=== PATIENT | female | born 1995 | race Caucasian/White ===

== ENCOUNTER 2023-07-07 05:34 | Emergency (ER) | payer SELFPAY ==
[2023-07-07 05:37] VITALS: BP 108/76; PULSE 100; RESP 20; TEMP 36.7; O2SAT 96
--- NOTE | 2023-07-07 05:48 | PC.NURSE ---
Pt presents to ER for a laceration to the medial aspect of her right calf Pt states she was climbing back into bed and knocked something off of her night stand that broke and the glass cut her leg Pt states she does not know when her last Tetanus shot was Bleeding controlled at this time
--- NOTE | 2023-07-07 05:51 | XR_ITS ---
The [address] [address] Patient Name: DEACON GUERRA MRN: [id number] date: 1995 Sex: F Assigned Patient Location: ER Current Patient Location: Accession/Order Number: [id number] Exam Date: 07/07/2023 06:15 Report Date: 07/07/2023 08:00 At the request of: SRUTHI BRAN Procedure: XR tibia fibula RT 2V PROCEDURE: XR tibia fibula RT 2V COMPARISON: None. HISTORY: foreign body FINDINGS: BONES:No fracture, acute abnormality, or significant arthropathy. SOFT TISSUES:Negative. No visible soft tissue swelling. EFFUSION:None visible. OTHER: Findings were discussed with the emergency room at 7:22 AM XR/XR tibia fibula RT 2V IMPRESSION: No radiopaque foreign body Electronically authenticated by: AMANUEL CARDENAS Date: 07/07/2023 08:00
[2023-07-07] MEDS: IBUPROFEN 600 MG TABLET PO (06:23)
--- NOTE | 2023-07-07 06:23 | ED.GENADUL1 ---
HPI - General Adult General Chief complaint: Wound/Laceration Stated complaint: CUT RIGHT LEG Time Seen by Provider: 07/07/23 05:48 Source: patient Mode of arrival: Wheelchair Limitations: no limitations History of Present Illness HPI narrative: Is coming to the ER after she sustained a wound to her right leg after broken candle stock fell on her right leg while it was in the table there was no other injuries and the patient does not remember the last time she had a tetanus booster Related Data Home Medications Medication Instructions Recorded Confirmed fluoxetine 20 mg capsule mg 07/07/23 Allergies Allergy/AdvReac Type Severity Reaction Status Date / Time No Known Drug Allergies Allergy Verified 07/07/23 05:40 Review of Systems ROS Status of ROS 10 or more systems reviewed and unremarkable except as noted in history and below [facility] Social History Smoking status: Never smoker Exam Narrative Exam Narrative: Nurses notes and vital signs reviewed and patient is not hypoxic. General: Well-appearing and in no apparent distress. Skin: Warm, dry, no pallor noted. No rash. Head: Normocephalic, atraumatic. Neck: Supple, non-tender. Eye: Pupils are equal, round and EOMI. No scleral icterus. Ears, Nose, Mouth, and Throat: TM are clear, no nasal mucosal hypertrophy. Oral mucosa is moist, no posterior oropharynx erythema, uvula is mid-line Cardiovascular: Regular Rate and Rhythm without murmur, gallop or rub. Respiratory: No accessory muscle use or respiratory distress. Lungs are clear to auscultation, no wheezing, rales or rhonchi Chest Wall: no tenderness Back: No midline thoracic or lumbar vertebral tenderness. No CVA tenderness Musculoskeletal: normal ROM, no calf or popliteal tenderness, at the right lower third of the tibia the patient only had 2.5 cm linear laceration going through the skin with no exposure of the underlying structures no foreign body seen GI: Abdomen is soft, non-distended. Normal bowel sounds. No masses appreciated. No tenderness to palpation. No rebound, guarding, or rigidity noted. Neurological: A&O x4. No cranial nerve dysfunction observed. No truncal ataxia. Moves all extremities. Sensation intact. Psychiatric: Cooperative and interactive. Normal mood and affect. Constitutional Vital Signs, click to edit/add: Last Vital Signs Temp 98.0 F 07/07/23 05:37 Pulse 100 H 07/07/23 05:37 Resp 20 07/07/23 05:37 BP 108/76 07/07/23 05:37 Pulse Ox 96 07/07/23 05:37 Course Vital Signs Vital signs: Vital Signs Temperature 98.0 F 07/07/23 05:37 Pulse Rate 100 H 07/07/23 05:37 Respiratory Rate 20 07/07/23 05:37 Blood Pressure 108/76 07/07/23 05:37 Pulse Oximetry 96 07/07/23 05:37 Temperature 98.0 F 07/07/23 05:37 Pulse Rate 100 H 07/07/23 05:37 Respiratory Rate 20 07/07/23 05:37 Blood Pressure 108/76 07/07/23 05:37 Pulse Oximetry 96 07/07/23 05:37 Medical Decision Making MDM Narrative Medical decision making narrative: After cleaning the wound the patient had LET applied ,2-3 cc of 1 % lidocaine after which the patient had 4 stitches and interrupted 4-0 nylon The patient instructed about wound care and dressing was applied X-ray of the right tibia and fibula shows no foreign body in the prelim reading The patient is to follow up with primary care physician in next 2-3 days or to return to the emergency department should any of the signs or symptoms worsen or new symptoms develop. The patient agrees with the following Diagnosis and Treatment plan and the patient will be discharged home. Discharge Plan Discharge Chief Complaint: Wound/Laceration Clinical Impression: Laceration Patient Disposition: Home, Self-Care Time of Disposition Decision: 06:46 Condition: Good Prescriptions / Home Meds: No Action fluoxetine 20 mg capsule Stand Alone Forms: Portal Instructions Referrals: Michael Tubbs MD [Primary Care Provider] - 1 week
[2023-07-07] MEDS: ADACEL DIPH,PERTUSS(ACELL),TET VAC/PF 0.5 ML ADULT SYRINGE IM (06:24)
[2023-07-07] MEDS: LIDOCAINE HCL 1% 100 MG/10 ML MDV INJ (06:25)
[2023-07-07 07:12] VITALS: BP 118/72; PULSE 86; RESP 18; O2SAT 98
== END 2023-07-07 07:50 | disposition home or self-care (01) ==
PROVIDERS: Emergency Provider Emergency Medicine; PCP Family Medicine
DX: S81.811A Laceration without foreign body, right lower leg, initial encounter (principal); Z23 Encounter for immunization; W20.8XXA Other cause of strike by thrown, projected or falling object, initial encounter
CPT/HCPCS: 12001; 73590; 90471; 90715; 99283

== ENCOUNTER 2024-06-18 17:57 | Emergency (ER) | payer SELFPAY ==
[2024-06-18 18:08] VITALS: BP 107/63; PULSE 79; TEMP 36.6; O2SAT 98; BMI 21.3
--- OUTSIDE RECORDS SUMMARY | 2024-06-18 18:09 | XMS_ITS | CCD ---
Author Organization [facility] In[facility] ion Partnership [employer] [facility] Care Team Providers Care Blood Bank Coordinator Name Role Phone DR ARMAND TUBBS Primary Care Unavailable DR PATRIC HUTCHINSON Admitting Unavailable JASPER, DR SPIVEY Attending Unavailable JASPER, DR SPIVEY Consulting Unavailable Problems Problem Classification Problem Date Documented Da te Episodic/Chronic E Codes: Natural/environment (1 source) Other and unspecified overexertion or strenuous movements or postures, initial encounter; Translations: [OTH AND UNS OVREXRT/STRN MVMT/POS INT] Onset: 04-14-2022 Episodic E Codes: Unspecified (1 source) Activity, dancing; Translations: [ACTIVITY DANCING] Onset: 04-14-2022 Episodic Other connective tissue disease (3 sources) Pain in left lower leg; Translations: [PAIN IN LEFT LOWER LEG] Onset: 04-13-2022 Episodic Sprains and strains (1 source) Strain of other muscle(s) and tendon(s) at lower leg level, left leg, initial encounter; Translations: [STRAIN OTH MSC TEND LOW LT LEG INIT] Onset: 04-14-2022 Episodic Results Test Name Value Interpretation Reference Range Facility Urineon 03-02-2020 Bacteria identified Cx Nom (U) Microbiology PROCEDURE: Urine Culture [R1] SOURCE: Urine BODY SITE: COLLECTED DATE/TIME: 02/29/2020 10:22 EDT RECEIVED DATE/TIME: 02/29/2020 13:24 EDT START DATE/TIME: 02/29/2020 13:24 EDT FREE TEXT SOURCE: Héctor VILLATORO, Keegan Anaya PA-C, Keegan Orozco FINAL REPORTS Final Report [] Verified Date/Time: 03/02/2020 11:37 EDT <10,000 cfu/ml Mixed skin contaminants Performing Locations R1: This test was performed at: [place], [address] [place] [address], [id number]- , [place], Normal [facility] Comment on above: Performed By: #### 1 [id number], [id number] #### [facility] [address] [place] [address] Coding Summary.on 03-01-2020 Coding Summary. CODING DATE: 020 FINAL [facility] STATUS: Home (Routine DC) PAYOR: Self Pay APC DESCRIPTION 5572 Level 2 Imaging with Contrast 5691 Level 1 Drug Administration 5693 Level 3 Drug Administration 5024 Level 4 Type A ED Visits ADMIT DX: REASON FOR VISIT DX: R11.2 Nausea with vomiting, unspecified R19.7 Diarrhea, unspecified R10.9 Unspecified abdominal pain FINAL DX: PRINCIPAL: K52.9 Noninfective gastroenteritis and colitis, unspecified SECONDARY: F12.90 Cannabis use, unspecified, uncomplicated PYMT PROC APC STAT DESCRIPTION DOCTOR NAME DATE NOTE: The code number assigned matches the documented diagnosis and / or procedure in the patient's chart. However, the narrative phrase printed from the coding software may appear abbreviated, or result in slightly different terminology. Revised Coded By: Fany Auguste Revised Date Saved: 03/01/2020 11:49 am Normal [facility] ED Note-Physicianon 03-01-20 ED Note-Physician Basic Information Time Seen: Héctor VILLATORO, Keegan Orozco 02/29/2020 09:46 Chief Complaint c/o N/V/D for 3 days. Fever at home per pt, afebrile here. 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 Neg preg test last PM. History of Present Illness 24-year-old female presents to the emergency room for nausea, vomiting, diarrhea and abdominal discomfort. She states that she has had symptoms for 3 days. She has had some fever at home but was afebrile here. She did take Tylenol prior to coming in. She did a negative test yesterday and states she is having some vaginal bleeding today. The patient states that she has a history of irritable bowel syndrome but this feels a little different. She states there is bright green stool and emesis. Review of Systems All Organ systems are reviewed. Pertinent positive and negative findings as mentioned in the HPI Physical Exam Vitals & Measurements T: 37.1 ?C (Oral) HR: 79(Monitored) RR: 16 BP: 94/52 SpO2: 96% HT: 150 cm WT: 54 kg BMI: 24 Nurses note and vital signs reviewed and patient is not hypoxic. General: The patient appears well and in no apparent distress. Patient is resting comfortably on cart. Skin: Warm, dry, no pallor noted. There is no rash noted. Head: Normocephalic, atraumatic Eye: Normal conjunctiva Ears, Nose, Mouth, and Throat: oral mucosa is moist Cardiovascular: Regular rhythm, tachycardic rate Respiratory: Patient is in no distress, no accessory muscle use, lungs are clear to auscultation, no wheezing, rales or rhonchi Back: non-tender, no CVA tenderness bilaterally to percussion. GI: Normal bowel sounds, epigastric tenderness to palpation, no masses appreciated. No rebound, guarding, or rigidity noted. Musculoskeletal: The patient has no evidence of calf tenderness, no pitting edema, symmetrical pulses noted bilaterally Neurological: A&O x4, normal speech Psychiatric: Cooperative Medical Decision Making The patient has leahy colitis but I suspect that this is more viral and inflammatory source. The patient did eat at [employer] prior to symptoms starting. The patient was given 2 L of IV fluids, Phenergan and Zofran and Bentyl. She was drastically improved taking oral fluids and foods here. She feels back to her normal baseline with no abdominal pain. She does have urinary tract infection also which we will treat with Keflex. She is to return regularly worsening symptoms. She is discharged home. Assessment/Plan Colitis (K52.9: Noninfective gastroenteritis and colitis, unspecified) Nausea with vomiting (R11.2: Nausea with vomiting, unspecified) Orders: dicyclomine, 20 mg = 1 tab(s), Oral, QID, X 7 day(s), # 28 tab(s), Refills(s) 0 dicyclomine, 20 mg = 2 mL, Injection, IntraMuscular, Once, Stop date 02/29/20 10:09:00 EDT, STAT, Start date 02/29/20 10:09:00 EDT famotidine, 20 mg = 2 mL, Soln-IV, IV Push, Once, Stop date 02/29/20 10:09:00 EDT, STAT, Start date 02/29/20 10:09:00 EDT ondansetron, 4 mg = 2 mL, Injection, IV Push, Once, Stop date 02/29/20 10:09:00 EDT, STAT, Start 02/29/20 10:09:00 EDT ondansetron, 4 mg = 1 tab(s), Oral, q6hr, # 10 tab(s), Refills(s) 0 promethazine, 25 mg = 1 tab(s), Oral, q4hr, # 14 tab(s), Refills(s) 0 promethazine, 12.5 mg = 0.5 mL, Injection, IV Push, Once, Stop date 02/29/20 12:31:00 EDT, STAT, Start date 02/29/20 12:31:00 EDT Sodium Chloride 0.9% intravenous solution 1,000 mL, 1,000 mL, IV, 1,000 mL/hr, for 1 hour(s), Stop 02/29/20 11:11:00 EDT, STAT, Start 02/29/20 10:12:00 EDT, 1 hour(s), Total volume (mL): 1,000, Bolus Dose: 1,000 mL Sodium Chloride 0.9% intravenous solution 1,000 mL, 1,000 mL, IV Piggyback, 1,000 mL/hr, for 2 hour(s), Stop date 02/29/20 14:24:00 EDT, STAT, Start date 02/29/20 12:25:00 EDT, 1 hour(s), Total volume (mL): 1,000, Bolus Dose: 1,000 mL Automated Diff Basic Metabolic Panel Beta hCG Qual CBC w/ Auto Diff CT Abdomen/Pelvis w/ Contrast eGFR Hepatic Function Panel Lipase Level UA With Cult Reflex Urine Culture Medications Administered Given NS 1000 ml Bolus 1,000 mL, 1000 mL, IV NS 1000 ml Bolus 1,000 mL, 1000 mL, IV Piggyback Bentyl 10 mg/mL Injection, 20 mg, IntraMuscular famotidine 10 mg/mL IV Madelaine, 20 mg, IV Push promethazine 25 mg/mL Inj, 12.5 mg, IV Push Zofran 4 mg/2 mL Injection, 4 mg, IV Push Disposition Plan Patient Discharge Condition Stable Discharge Disposition Discharged home Discharge Prescription List Prescriptions dicyclomine 20 mg Tab, 20 mg= 1 tab(s), Oral, QID promethazine 25 mg Tab, 25 mg= 1 tab(s), Oral, q4hr Zofran ODT 4 mg Tab-Dis, 4 mg= 1 tab(s), Oral, q6hr Follow-up With When Contact Information Moriah Rosas In 3 days 03/03/2020 EDT [address] [place] [address]- Business (1) Additional Instructions: Armand Tubbs In 3 days 03/03/2020 EDT [address] [facility] [place] [address]- Business (1) Additional Instructions: Patient Education Nausea and Vomiting Colitis Attestation The patient's care was supervised by Dr. Bradford including history, physical, medical decision making, and disposition. Teaching-Supervisory Addendum-Brief I participated in the following activities of this patients care: the medical history. I personally performed: supervision of the patient's care, the medical history, the physical exam, the medical decision making. The case was discussed with: the physician assistant cross country coach, Keegan Anaya PA-C. Procedures: I directly supervised the entire procedure. Evaluation and management service: I agree with the evaluation and management decisions made in this patient's care. Results interpretation: I agree with the study interpretation in this patient's care, I agree with the documentation of the study interpretation. Problem List/Past Medical History Ongoing Smoker Historical No qualifying data Medications Inpatient No active inpatient medications Home dicyclomine 20 mg Tab, 20 mg= 1 tab(s), Oral, QID promethazine 25 mg Tab, 25 mg= 1 tab(s), Oral, q4hr Zofran ODT 4 mg Tab-Dis, 4 mg= 1 tab(s), Oral, q6hr Allergies No Known Allergies Social History Alcohol - Denies Alcohol Use, 02/29/2020 Substance Abuse Current, Marijuana, Daily, 02/29/2020 Tobacco - Denies Tobacco Use, 02/29/2020 Lab Results WBC: 7.5 E9/L (02/29/20 10:15:00) RBC: 4.7 E12/L (02/29/20 10:15:00) Hgb: 14.7 gm/dL (02/29/20 10:15:00) Hct: 42.7 % (02/29/20 10:15:00) MCV: 91.8 fL (02/29/20 10:15:00) MCH: 31.7 pg (02/29/20 10:15:00) MCHC: 34.5 gm/dL (02/29/20 10:15:00) RDW: 13.5 % (02/29/20 10:15:00) Platelet: 287 E9/L (02/29/20 10:15:00) MPV: 8.7 fL (02/29/20 10:15:00) Neutro Auto: 65.7 % (02/29/20 10:15:00) Lymph Auto: 25 % (02/29/20 10:15:00) Barry Auto: 7.7 % (02/29/20 10:15:00) Eos Auto: 0.9 % (02/29/20 10:15:00) Basophil Auto: 0.7 % (02/29/20 10:15:00) Neutro Absolute: 4.9 E9/L (02/29/20 10:15:00) Lymph Absolute: 1.9 E9/L (02/29/20 10:15:00) Barry Absolute: 0.6 E9/L (02/29/20 10:15:00) Eos Absolute: 0.1 E9/L (02/29/20 10:15:00) Basophil Absolute: 0.1 E9/L (02/29/20 10:15:00) Glucose Lvl: 116 mg/dL (02/29/20 10:15:00) BUN: 9 mg/dL (02/29/20 10:15:00) Creatinine: 0.7 mg/dL (02/29/20 10:15:00) eGFR: >60 (02/29/20 10:15:00) eGFR AA: >60 (02/29/20 10:15:00) BUN/Creat Ratio: 13 (02/29/20 10:15:00) Sodium Lvl: 137 mmol/L (02/29/20 10:15:00) Potassium Lvl: 3.2 mmol/L Low (02/29/20 10:15:00) Chloride: 106 mmol/L (02/29/20 10:15:00) CO2: 21 mmol/L (02/29/20 10:15:00) AGAP: 13 mEq/L (02/29/20 10:15:00) Calcium Lvl: 8.6 mg/dL Low (02/29/20 10:15:00) Alk Phos: 58 Int._Unit/L (02/29/20 10:15:00) ALT: 20 Int._Unit/L (02/29/20 10:15:00) AST: 28 Int._Unit/L (02/29/20 10:15:00) Total Protein: 7.5 gm/dL (02/29/20 10:15:00) Albumin Lvl: 4.2 gm/dL (02/29/20 10:15:00) Globulin: 3.3 gm/dL (02/29/20 10:15:00) A/G Ratio: 1.3 (02/29/20 10:15:00) Bili Total: 1.2 mg/dL High (02/29/20 10:15:00) Bili Direct: 0.2 mg/dL (02/29/20 10:15:00) Bili Indirect: 1 mg/dL High (02/29/20 10:15:00) Lipase Lvl: 29 unit/L (02/29/20 10:15:00) Lactic Acid Lvl: 0.8 mmol/L (02/29/20 10:58:00) UA Spec Desc: Clean Catch (02/29/20 10:22:00) UA Color: Yellow2 (02/29/20 10:22:00) UA Clarity: Slightly Cloudy3 Abnormal (02/29/20 10:22:00) UA Spec Grav: >=1.030 (02/29/20 10:22:00) UA pH: 5.5 (02/29/20 10:22:00) UA Protein: NEGATIVE1 (02/29/20 10:22:00) UA Glucose: NEGATIVE1 (02/29/20 10:22:00) UA Ketones: 3+ Abnormal (02/29/20 10:22:00) UA Bili: 1+ Abnormal (02/29/20 10:22:00) UA Blood: 1+ Abnormal (02/29/20 10:22:00) UA Nitrite: NEGATIVE1 (02/29/20 10:22:00) UA Urobilinogen: 0.2 (02/29/20 10:22:00) UA Leuk Est: Trace2 Abnormal (02/29/20 10:22:00) UA RBC: 0-3 (02/29/20 10:22:00) UA Squam Epithelial: >10 (02/29/20 10:22:00) UA WBC: 16-25 Abnormal (02/29/20 10:22:00) UA Bacteria: Trace2 (02/29/20 10:22:00) UA Mucous: 1+ (02/29/20 10:22:00) Beta hCG Ql: NEGATIVE1 (02/29/20 10:15:00) Diagnostic Results CT Abdomen/Pelvis w/ Contrast 02/29/20 12:06:49 IMPRESSION: MILD UNCOMPLICATED PANCOLITIS. MOST LIKELY POSSIBILITIES ARE INFECTIOUS OR INFLAMMATORY BOWEL DISEASE. NO OTHER FINDINGS OF CONCERN IDENTIFIED.. EXAM: CT Abdomen/Pelvis w/ Contrast DATE: 02/29/2020 11:22 AM CLINICAL HISTORY: Abdominal pain, nausea, vomiting, diarrhea. COMPARISON: None available. TECHNIQUE: Spiral imaging was obtained of the abdomen and pelvis after the infusion of approximately 100 mL of Isovue [address] scans at this facility use dose modulation, iterative reconstruction, and/or weight based dosing when appropriate to reduce radiation dose to as low as reasonably achievable. FINDINGS: Mild wall thickening is present and essentially collapsed colon with minimal surrounding inflammation, suggestive of uncomplicated colitis. There is no abnormal bowel dilatation, abscess, free air, free fluid, significant lymphadenopathy or hernias. The liver, gallbladder, pancreas, spleen, adrenal glands, kidneys, great vessels, small bowel loops, uterus, adnexal regions, urinary bladder, and additional images of pelvis appear within normal limits. The visualized lung bases and musculoskeletal structures are unremarkable. Signed By: Oh Díaz MD 02/29/20 11:46:19 GFR (mL/min/1/73m2) >60 Contrast: Isovue 300 Contrast amount in ml?s: 100 Rectal Contrast Given? No Signed By: Oh Díaz MD [facility] Comment on above: Result Comment: Elec tronically Signed By: Keegan Anaya PA-C\.br\Date and Time Signed: 02/29/20 23:56 EDT\.br\Electronically Co-Signed By: Karla Bradford M.D.\.br\Date and Time Co-Signed: 03/01/20 14:21 EDT Auto Diffon 02-29-2020 Basophils/100 WBC (Bld) 0.7 % Normal 0.0-2.[address] [facility] Comment on above: Order Comment: Order Added by Discern Expert. Performed By: #### 2 [id number], 7688991, 9304943, 5371102, 7690957, 91568757, [id number] #### [facility] [address] [place] [address] Basophils/Leukocyte s Auto (Bld) [Pure # fraction] 0.1 E9/L Normal 0.0-0.[address] [facility] Comment on above: Order Comment: Order Added by Discern Expert. Performed By: #### 2 409437, 0032966, 1915043, 2486708, 0243259, 68727565, [id number] #### [facility] [address] [place] [address]31[address] Eosinophils/100 WBC (Bld) 0.9 % Normal 0.0-8.[address] [facility] Comment on above: Order Comment: Order Added by Discern Expert. Performed By: #### 2 412478, 5989213, 3014577, 3332965, 8297373, 27082708, 26804900 #### [facility] [address] [place] [address] Eosinophils/Leukocy darcie Auto (Bld) [Pure # fraction] 0.1 E9/L Normal 0.0-0.[address] [facility] Comment on above: Order Comment: Order Added by Discern Expert. Performed By: #### 2 680262, 9595506, 8016505, 7282959, 3322431, 37839961, 28594435 #### [facility] [address] [place] [address]2434 Lymphocytes/100 WBC (Bld) 25.0 % Normal 14.0-50.[address] [facility] Comment on above: Order Comment: Order Added by Discern Expert. Performed By: #### 2 014979, 4409400, 6746618, 8055032, 1502505, 77155934, 86694017 #### [facility] [address] [place] [address] Lymphocytes/Leukocy darcie Auto (Bld) [Pure # fraction] 1.9 E9/L Normal 1.0-4.[address] [facility] Comment on above: Order Comment: Order Added by Discern Expert. Performed By: #### 2 449875, 7127255, 8922494, 1133431, 9030813, 03195144, 63127295 #### [facility] [address] [place] [address] Monocytes/100 WBC (Bld) 7.7 % Normal 4.0-14.[address] [facility] Comment on above: Order Comment: Order Added by Discern Expert. Performed By: #### 2 827872, 5893896, 1413599, 4749802, 6484497, 65979847, 38866762 #### [facility] [address] [place] [address] 82578 Monocytes/Leukocyte s Auto (Bld) [Pure # fraction] 0.6 E9/L Normal 0.2-1.[address] [facility] Comment on above: Order Comment: Order Added by Discern Expert. Performed By: #### 2 916382, 6651587, 1148637, 9735195, 8955789, 34620847, 05634209 #### [facility] [address] [place] [address] 79717 Neutrophils/100 WBC (Bld) 65.7 % Normal 36.0-75.[address] [facility] Comment on above: Order Comment: Order Added by Discern Expert. Performed By: #### 2 601595, 8133325, 0263553, 0327381, 1870843, 54858945, 13125250 #### [facility] [address] [place] [address]682 Neutrophils/Leukocy darcie Auto (Bld) [Pure # fraction] 4.9 E9/L Normal 2.0-7.[address] [facility] Comment on above: Order Comment: Order Added by Discern Expert. Performed By: #### 2 874907, 8640233, 4163339, 9317165, 5264166, 51357066, 35552386 #### [facility] [address] [place] [address] B hCG Qualon 02-29-2020 Beta hCG Ql Negative Normal [facility] Comment on above: Performed By: #### 2 643639, 9224375, 8158756, 1878006, 9198917, 64871024, 32724052 #### [facility] [address] [place] [address] BMPon 02-29-2020 Creatinine [Mass/Vol] 0.7 mg/dL Normal 0.5-1.[address] [facility] Comment on above: Performed By: #### 2 735429, 3113343, 0852301, 2182471, 1311142, 17938684, 00318566 #### [facility] [address] [place] [address] 37569 Urea nitrogen [Mass/Vol] 9 mg/dL Normal 5-[address] [facility] Comment on above: Performed By: #### 2 857862, 6085499, 8140189, 2437321, 3593968, 65428731, 53454391 #### [facility] [address] [place] [address] 89039 Urea nitrogen/Creatinine [Mass ratio] 13 No Units Normal 10-[address] [facility] Comment on above: Performed By: #### 2 498225, 5699875, 6820665, 3493582, 0196642, 78668530, 97640353 #### [facility] [address] [place] [address] Anion gap [Moles/Vol] 13 mmol/L Normal 6-[address] [facility] Comment on above: Performed By: #### 2 381639, 4936679, 6669735, 1799773, 1469765, 07061650, 07153075 #### [facility] [address] [place] [address] Calcium [Mass/Vol] 8.6 mg/dL Low 8.9-11.[address] [facility] Comment on above: Performed By: #### 2 440432, 4762390, 9199490, 6975508, 1765522, 89395191, 27693081 #### [facility] [address] [place] [address] Chloride [Moles/Vol] 106 mmol/L Normal 101-[address] [facility] Comment on above: Performed By: #### 2 801292, 7540589, 4646355, 3573608, 7173220, 67825387, 46579322 #### [facility] [address] [place] [address] CO2 [Moles/Vol] 21 mmol/L Normal 21-31 [facility] Comment on above: Performed By: #### 2 985409, 3084742, 9780583, 8056279, 6056207, 03794136, 97083028 #### [facility] [address] [place] [address] Glucose [Mass/Vol] 116 mg/dL Normal 55-[address] [facility] Comment on above: Result Comment: If t his glucose result represents a fasting glucose, interpretation should refer to the following reference range: 55-99 mg/dL Performed By: #### 2 980716, 1014844, 4250353, 1625265, 0093330, 58200359, 71452292 #### [facility] [address] [place] [address] Potassium [Moles/Vol] 3.2 mmol/L Low 3.5-5.[address] [facility] Comment on above: Performed By: #### 2 524588, 6635337, 6050635, 4821521, 2765720, 23291848, 82414479 #### [facility] [address] [place] [address] Sodium [Moles/Vol] 137 mmol/L Normal 135-[address] [facility] Comment on above: Performed By: #### 2 620326, 5591086, 8869172, 9008009, 3508609, 46734464, 21866740 #### [facility] [address] [place] [address] 93170 CBC w/ Auto Diffon 0 Erythrocyte distribution width (RBC) [Ratio] 13.5 % Normal 10.9-14.[address] [facility] Comment on above: Performed By: #### 2 041789, 9026895, 2826503, 9146833, 9721867, 10003035, 64893858 #### [facility] [address] [place] [address] Hematocrit (Bld) [Volume fraction] 42.7 % Normal 34.0-46.[address] [facility] Comment on above: Performed By: #### 2 458691, 3855911, 4582349, 7038711, 4607505, 63226027, 00764019 #### [facility] [address] [place] [address] Hemoglobin (Bld) [Mass/Vol] 14.7 g/dL Normal 12.0-16.[address] [facility] Comment on above: Performed By: #### 2 891375, 7646186, 8275067, 0471650, 7437109, 83598672, 09554628 #### [facility] [address] [place] [address] 71647 MCH (RBC) [Entitic mass] 31.7 pg Normal 27.0-34.[address] [facility] Comment on above: Performed By: #### 2 318999, 2556197, 4608433, 2054521, 3805608, 31622555, 28355810 #### [facility] [address] [place] [address] 12040 MCHC (RBC) [Mass/Vol] 34.5 g/dL Normal 31.4-36.[address] [facility] Comment on above: Performed By: #### 2 394016, 6448693, 9746731, 8760974, 3502402, 85007554, 78990086 #### [facility] [address] [place] [address] MCV (RBC) [Entitic vol] 91.8 fL Normal 80.0-100.[address] [facility] Comment on above: Performed By: #### 2 315539, 2780077, 4626092, 8577680, 3229042, 12483629, 47294597 #### [facility] [address] [place] [address] 01468 Platelet mean volume (Bld) [Entitic vol] 8.7 fL Normal 6.4-10.[address] [facility] Comment on above: Performed By: #### 2 148401, 2302235, 5324277, 2042082, 4891915, 19494879, 09498950 #### [facility] [address] [place] [address] 36280 Platelets (Bld) [#/Vol] 287.0 E9/L Normal 150.0-500.[address] [facility] Comment on above: Performed By: #### 2 173428, 2080667, 3827669, 5391408, 8408611, 19843148, 44285362 #### [facility] [address] [place] [address] 83505 RBC (Bld) [#/Vol] 4.7 E12/L Normal 4.3-5.[address] [facility] Comment on above: Performed By: #### 2 796164, 0610933, 0157561, 9694475, 6822033, 31818456, 33011034 #### [facility] [address] [place] [address] 31452 WBC corrected for nucl RBC Auto (Bld) [#/Vol] 7.5 E9/L Normal 4.0-11.[address] [facility] Comment on above: Performed By: #### 2 044678, 7199602, 2044633, 3662916, 6682313, 42732719, 88659294 #### [facility] [address] [place] [address] Abdomen/Pelvis w/ Contras ton 02-29-2020 CT Abdomen/Pelvis w/ Contrast Exam Date/Time: 02/29/2020 11:46 EDT Reason for Exam: Pain Report IMPRESSION: MILD UNCOMPLICATED PANCOLITIS. MOST LIKELY POSSIBILITIES ARE INFECTIOUS OR INFLAMMATORY BOWEL DISEASE. NO OTHER FINDINGS OF CONCERN IDENTIFIED.. EXAM: CT Abdomen/Pelvis w/ Contrast DATE: 02/29/2020 11:22 AM CLINICAL HISTORY: Abdominal pain, nausea, vomiting, diarrhea. COMPARISON: None available. TECHNIQUE: Spiral imaging was obtained of the abdomen and pelvis after the infusion of approximately 100 mL of Isovue [address] scans at this facility use dose modulation, iterative reconstruction, and/or weight based dosing when appropriate to reduce radiation dose to as low as reasonably achievable. FINDINGS: Mild wall thickening is present and essentially collapsed colon with minimal surrounding inflammation, suggestive of uncomplicated colitis. There is no abnormal bowel dilatation, abscess, free air, free fluid, significant lymphadenopathy or hernias. The liver, gallbladder, pancreas, spleen, adrenal glands, kidneys, great vessels, small bowel loops, uterus, adnexal regions, urinary bladder, and additional images of pelvis appear within normal limits. The visualized lung bases and musculoskeletal structures are unremarkable. FINAL REPORT Dictated: 02/29/2020 12:03 pm Oh Díaz MD Signed (Electronic Signature): 02/29/2020 12:03 pm Signed by: Oh Díaz MD Transcribed by: BOUBACAR Technologist: CASSIA Technical Comments GFR (mL/min/1/73m2) >60 Technical Comments Contrast: Isovue 300 Contrast amount in ml's: 100 Rectal Contrast Given? No Normal [facility] Consent for Treatmenton 02-06 Consent for Treatment [id number]:[address] [facility] Discharge Instructionson Discharge Instructions [id number]:1 [address] [facility] ED Clinical Summaryon 2019 ED Clinical Summary (Inserted Image. Susan ble to display) [place] [id number] ED Clinical Summary Person Information Name: DEACON GUERRA [facility] Age: 24 Years : 1995 Sex: Female Language: St Helenian PCP: Armand Tubbs MD Marital Status: Single Phone: [phone] Visit Id: Visit Reason: Diarrhea; Vomiting; Nausea; ABD [id number] ABDIEL Speciality: Acuity: 3 Enc Type: Emergency Med Service: Emergency Arrival: 02/29/2020 09:40:28 Discharge: 02/29/2020 13:52:49 LOS: 000 04:12 Checkin: 02/29/2020 09:40:28 Checkout: 02/29/2020 13:52:49 Dispo Type: Home (Routine DC) EVENTS: Event Name Event Status Request Date/Time Start Date/Time Complete Date/Time Arrive Complete 02/29/2020 09:40:28 02/29/2020 09:40:28 02/29/2020 09:40:28 Document Home Meds Request 02/29/2020 09:40:28 Triage Complete 02/29/2020 09:40:28 02/29/2020 09:50:15 02/29/2020 09:50:15 Bed Assign Complete 02/29/2020 09:43:27 02/29/2020 09:43:27 02/29/2020 09:43:27 Dr Exam Complete 02/29/2020 09:43:27 02/29/2020 09:46:20 02/29/2020 09:46:20 RN Exam Complete 02/29/2020 09:43:27 02/29/2020 10:38:30 02/29/2020 10:38:30 Registration Complete 02/29/2020 09:46:20 02/29/2020 10:44:25 02/29/2020 10:44:25 Dr Exam Complete 02/29/2020 09:47:39 02/29/2020 09:47:39 02/29/2020 09:47:39 Meds Admin Complete 02/29/2020 10:09:13 02/29/2020 10:30:40 Meds Admin Complete 02/29/2020 10:09:44 02/29/2020 10:30:39 NPO Request 02/29/2020 10:12:59 Meds Admin Complete 02/29/2020 10:12:59 02/29/2020 11:13:53 Pending Labs Complete 02/29/2020 10:12:59 02/29/2020 11:04:56 Lab Complete 02/29/2020 10:12:59 02/29/2020 10:49:45 Urine Collect Complete 02/29/2020 10:12:59 02/29/2020 10:49:45 Patient Care Request 02/29/2020 10:12:59 CT Complete 02/29/2020 10:20:21 02/29/2020 11:22:38 02/29/2020 11:46:20 Pending Labs Complete 02/29/2020 10:28:34 02/29/2020 10:28:34 02/29/2020 10:49:19 Lab Complete 02/29/2020 10:28:34 02/29/2020 10:28:34 02/29/2020 10:49:19 Pending Labs Complete 02/29/2020 10:32:06 02/29/2020 10:32:06 02/29/2020 10:32:15 Lab Complete 02/29/2020 10:32:06 02/29/2020 10:32:06 02/29/2020 10:32:15 Reg Complete Request 02/29/2020 10:44:25 Reg Bed Request Complete 02/29/2020 10:44:25 02/29/2020 10:44:25 02/29/2020 10:44:25 Pending Labs Inlab 02/29/2020 10:49:46 02/29/2020 10:49:46 Lab Inlab 02/29/2020 10:49:46 02/29/2020 10:49:46 Pending Labs Complete 02/29/2020 10:50:55 02/29/2020 11:19:04 Lab Complete 02/29/2020 10:50:55 02/29/2020 11:19:04 Meds Admin Request 02/29/2020 12:27:11 Meds Admin Complete 02/29/2020 12:31:14 02/29/2020 12:38:17 Discharge Complete 02/29/2020 13:33:49 02/29/2020 13:52:55 02/29/2020 13:52:55 Transfer Complete 02/29/2020 13:52:55 02/29/2020 13:52:55 02/29/2020 13:52:55 ADDRESS: [facility] [place] [address] [place] [id number] PHYS DOC NOTES: MEDICAL INFORMATION: Prescriptions Given: New Medications Printed Prescriptions dicyclomine (dicyclomine 20 mg Tab) 1 Tablets By Mouth 4 times a day for 7 Days. Refills: 0. ondansetron (Zofran ODT 4 mg Tab-Dis) 1 Tablets By Mouth every 6 hours. Refills: 0. promethazine (promethazine 25 mg Tab) 1 Tablets By Mouth every 4 hours. Refills: 0. PATIENT EDUCATION INFORMATION: Instructions: Nausea and Vomiting; Colitis Follow up: With: Address: When: Moriah Rosas [address] [place] [address] Business (1) In 3 days 03/03/2020 With: Address: When: Armand Tubbs [address] [place] [address], [facility] [place] [address] Business (1) In 3 days 03/03/2020 DIAGNOSIS: Colitis; Nausea with vomiting Normal [facility] ED Patient Education Noteon 02-29-2020 ED Patient Education Note Anesthesiology Nausea and Vomiting Nausea is a sick feeling that often comes before throwing up (vomiting). Vomiting is a reflex where stomach contents come out of your mouth. Vomiting can cause severe loss of body fluids (dehydration). Children and elderly adults can become dehydrated quickly, especially if they also have diarrhea. Nausea and vomiting are symptoms of a condition or disease. It is important to find the cause of your symptoms. CAUSES ? Direct irritation of the stomach lining. This irritation can result from increased acid production (gastroesophageal reflux disease), infection, food poisoning, taking certain medicines (such as nonsteroidal anti-inflammatory drugs), alcohol use, or tobacco use. ? Signals from the brain.?These signals could be caused by a headache, heat exposure, an inner ear disturbance, increased pressure in the brain from injury, infection, a tumor, or a concussion, pain, emotional stimulus, or metabolic problems. ? An obstruction in the gastrointestinal tract (bowel obstruction). ? Illnesses such as diabetes, hepatitis, gallbladder problems, appendicitis, kidney problems, cancer, sepsis, atypical symptoms of a heart attack, or eating disorders. ? Medical treatments such as chemotherapy and radiation. ? Receiving medicine that makes you sleep (general anesthetic) during surgery. DIAGNOSIS Your caregiver may ask for tests to be done if the problems do not improve after a few days. Tests may also be done if symptoms are severe or if the reason for the nausea and vomiting is not clear. Tests may include: ? Urine tests. ? Blood tests. ? Stool tests. ? Cultures (to look for evidence of infection). ? X-rays or other imaging studies. Test results can help your caregiver make decisions about treatment or the need for additional tests. TREATMENT You need to stay well hydrated. Drink frequently but in small amounts.?You may wish to drink water, sports drinks, clear broth, or eat frozen ice pops or gelatin dessert to help stay hydrated.?When you eat, eating slowly may help prevent nausea.?There are also some antinausea medicines that may help prevent nausea. HOME CARE INSTRUCTIONS ? Take all medicine as directed by your caregiver. ? If you do not have an appetite, do not force yourself to eat. However, you must continue to drink fluids. ? If you have an appetite, eat a normal diet unless your caregiver tells you differently. ? Eat a variety of complex carbohydrates (rice, wheat, potatoes, bread), lean meats, yogurt, fruits, and vegetables. ? Avoid high-fat foods because they are more difficult to digest. ? Drink enough water and fluids to keep your urine clear or pale yellow. ? If you are dehydrated, ask your caregiver for specific rehydration instructions. Signs of dehydration may include: ? Severe thirst. ? Dry lips and mouth. ? Dizziness. ? Dark urine. ? Decreasing urine frequency and amount. ? Confusion. ? Rapid breathing or pulse. SEEK IMMEDIATE MEDICAL CARE IF: ? You have blood or brown flecks (like coffee grounds) in your vomit. ? You have black or bloody stools. ? You have a severe headache or stiff neck. ? You are confused. ? You have severe abdominal pain. ? You have chest pain or trouble breathing. ? You do not urinate at least once every 8 hours. ? You develop cold or clammy skin. ? You continue to vomit for longer than 24 to 48 hours. ? You have a fever. MAKE SURE YOU: ? Understand these instructions. ? Will watch your condition. ? Will get help right away if you are not doing well or get worse. Document Released: 08/24/2006 Document Revised: 11/15/2012 Document Reviewed: 01/21/2012 ExitCare? Patient Information ?2015 [employer]. This information is not intended to replace advice given to you by your health care provider. Make sure you discuss any questions you have with your health care provider. Family Medicine Colitis Colitis is inflammation of the colon. Colitis can be a short-term or long-standing (chronic) illness. Crohn's disease and ulcerative colitis are 2 types of colitis which are chronic. They usually require lifelong treatment. CAUSES There are many different causes of colitis, including: ? Viruses. ? Germs (bacteria). ? Medicine reactions. SYMPTOMS ? Diarrhea. ? Intestinal bleeding. ? Pain. ? Fever. ? Throwing up (vomiting). ? Tiredness (fatigue). ? Weight loss. ? Bowel blockage. DIAGNOSIS The diagnosis of colitis is based on examination and stool or blood tests. X-rays, CT scan, and colonoscopy may also be needed. TREATMENT Treatment may include: ? Fluids given through the vein (intravenously). ? Bowel rest (nothing to eat or drink for a period of time). ? Medicine for pain and diarrhea. ? Medicines (antibiotics) that kill germs. ? Cortisone medicines. ? Surgery. HOME CARE INSTRUCTIONS ? Get plenty of rest. ? Drink enough water and fluids to keep your urine clear or pale yellow. ? Eat a well-balanced diet. ? Call your caregiver for follow-up as recommended. SEEK IMMEDIATE MEDICAL CARE IF: ? You develop chills. ? You have an oral temperature above 102? F (38.9? C), not controlled by medicine. ? You have extreme weakness, fainting, or dehydration. ? You have repeated vomiting. ? You develop severe belly (abdominal) pain or are passing bloody or tarry stools. MAKE SURE YOU: ? Understand these instructions. ? Will watch your condition. ? Will get help right away if you are not doing well or get worse. Document Released: 10/01/2005 Document Revised: 11/15/2012 Document Reviewed: 12/27/2010 ExitCare? Patient Information ?2015 [employer]. This information is not intended to replace advice given to you by your health care provider. Make sure you discuss any questions you have with your health care provider. Normal [facility] ED Patient Summaryon 020 ED Patient Summary (Inserted Image. Susan ble to display) [address] [address] Patient Discharge Instructions Person Information Name: DEACON GUERRA Age: 24 Years Arrival Date: 02/29/2020 09:40:28 Discharge Diagnosis: Colitis; Nausea with vomiting Primary Care Physician: Armand Tubbs MD Provider Information Primary Provider: Karla Bradford M.D. [employer] It:Keegan Anaya PA-C The exam and treatment you received in the Emergency Department were for an urgent problem and are not intended as complete care. It is important that you follow up with a doctor, nurse practitioner, or physician?s assistant cross country coach for ongoing care. If your symptoms become worse or you do not improve as expected and you are unable to reach your usual health care provider, you should return to the Emergency Department. We are available 24 hours a day. DEACON GUERRA has been given the following list of patient education materials, prescriptions and follow-up instructions: Follow-up Instructions: With: Address: When: Moriah Rosas [address] [place] [address] [place] [phone] Business (1) In 3 days 03/03/2020 With: Address: When: Armand Tubbs [address] [place] [address] [place] [phone] (1) In 3 days 03/03/2020 In the event that this physician does not participate in your insurance network, please consult with your insurance company to find a nearby participating provider. Patient Education Materials: Nausea and Vomiting; Colitis A MESSAGE TO ALL PATIENTS REGARDING OPIOIDS PRESCRIPTION OPIOIDS: WHAT YOU NEED TO KNOW Prescription opioids can be used to help relieve pmumhapp-qo-hvfooz pain and are often prescribed following a surgery or injury, or for certain health conditions. These medications can be an important part of the treatment but also come with serious risks. It is important to work with your healthcare provider to make sure you are getting the safest, most effective care. WHAT ARE THE RISKS AND SIDE EFFECTS OF OPIOID USE? Prescription opioids carry serious risks of addiction and overdose, especially with prolonged use. An opioid overdose, often marked by slowed breathing, can cause sudden . The use of prescription opioids can have a number of side effects as well, even when taken as directed: ? Tolerance?meaning you might need to take more of the medication for the same pain relief ? Physical dependence?meaning you have symptoms of withdrawal when a medication is stopped ? Increased sensitivity to pain ? Constipation ? Nausea, vomiting, and dry mouth ? Sleepiness and dizziness ? Confusion ? Depression ? Low levels of testosterone that can result in lower sex drive, energy, and strength ? Itching and sweating RISKS ARE GREATER WITH: ? History of drug misuse, substance use disorder, or overdose ? Mental health conditions (such as depression or anxiety) ? Sleep apnea ? Older age (65 years and older) ? Avoid alcohol while taking prescription opioids. Also, unless specifically advised by your health care provider, medications to avoid include: ? Benzodiazepines (such as Xanax or Valium) ? Muscle relaxants (such as Soma or Flexeril) ? Hypnotics (such as Ambien or Lunesta) ? Other prescription opioids KNOW YOUR OPTIONS Talk to your health care provider about ways to manage your pain that don?t involve prescription opioids. Some of these options may actually work better and have fewer risks and side effects. Options may include: ? Pain relievers such as acetaminophen, ibuprofen, and naproxen ? Some medication that are also used for depression or seizures ? Physical therapy and exercise ? Cognitive behavioral therapy, a psychological, goal-directed approach, in which patients learn how to modify physical, behavioral, and emotional triggers of pain and stress. IF YOU ARE PRESCRIBED OPIOIDS FOR PAIN: ? Never take opioids in greater amounts or more often than prescribed. ? Follow up with your primary health care provider. o Work together to create a plan on how to manage your pain. o Talk about ways to help manage your pain that don?t involve prescription opioids. o Talk about any and all concerns and side effects. ? Help prevent misuse and abuse o Never sell or share prescription opioids. o Never use another person?s prescription opioids. ? Store prescription opioids in a secure place and out of reach of others (this may include visitors, children, friends, and family). ? Safely dispose of unused prescription opioids: Find your community drug take-back program or your pharmacy mail-back program, or flush them down the toilet, following guidance from the Food and Drug Administration (www.fda.gov/Drugs/Resour cesForYou). ? Visit www.cdc.gov/drugoverdose to learn about the risks of opioids abuse and overdose. ? If you believe you may be struggling with addiction, tell your health college and career counselor and ask for guidance or call [facility] National Helpline at 8-396-748-KYVK. v Source: US Department of Health and Human Services/Center for Disease Control & Prevention [facility] Medications Given: Medication Dose Route ondansetron 4.00 mg IV Push Left Wrist dicyclomine 20.00 mg IntraMuscular Left Wrist famotidine 20.00 mg IV Push Left Wrist Sodium Chloride 0.9% intravenous solution 1000.00 mL Initial Volume 1000.00 mL/hr IV Left Wrist Sodium Chloride 0.9% intravenous solution 1000.00 mL Initial Volume 1000.00 mL/hr IV Piggyback Left Wrist promethazine 12.50 mg IV Push Left Wrist Medication Information: New Medications Printed Prescriptions dicyclomine (dicyclomine 20 mg Tab) 1 Tablets By Mouth 4 times a day for 7 Days. Refills: 0. ondansetron (Zofran ODT 4 mg Tab-Dis) 1 Tablets By Mouth every 6 hours. Refills: 0. promethazine (promethazine 25 mg Tab) 1 Tablets By Mouth every 4 hours. Refills: 0. Comment: Pharmacy Information: Thank you for choosing [facility] Patient Education Materials: Nausea and Vomiting Nausea is a sick feeling that often comes before throwing up (vomiting). Vomiting is a reflex where stomach contents come out of your mouth. Vomiting can cause severe loss of body fluids (dehydration). Children and elderly adults can become dehydrated quickly, especially if they also have diarrhea. Nausea and vomiting are symptoms of a condition or disease. It is important to find the cause of your symptoms. CAUSES ? Direct irritation of the stomach lining. This irritation can result from increased acid production (gastroesophageal reflux disease), infection, food poisoning, taking certain medicines (such as nonsteroidal anti-inflammatory drugs), alcohol use, or tobacco use. ? Signals from the brain.?These signals could be caused by a headache, heat exposure, an inner ear disturbance, increased pressure in the brain from injury, infection, a tumor, or a concussion, pain, emotional stimulus, or metabolic problems. ? An obstruction in the gastrointestinal tract (bowel obstruction). ? Illnesses such as diabetes, hepatitis, gallbladder problems, appendicitis, kidney problems, cancer, sepsis, atypical symptoms of a heart attack, or eating disorders. ? Medical treatments such as chemotherapy and radiation. ? Receiving medicine that makes you sleep (general anesthetic) during surgery. DIAGNOSIS Your caregiver may ask for tests to be done if the problems do not improve after a few days. Tests may also be done if symptoms are severe or if the reason for the nausea and vomiting is not clear. Tests may include: ? Urine tests. ? Blood tests. ? Stool tests. ? Cultures (to look for evidence of infection). ? X-rays or other imaging studies. Test results can help your caregiver make decisions about treatment or the need for additional tests. TREATMENT You need to stay well hydrated. Drink frequently but in small amounts.?You may wish to drink water, sports drinks, clear broth, or eat frozen ice pops or gelatin dessert to help stay hydrated.?When you eat, eating slowly may help prevent nausea.?There are also some antinausea medicines that may help prevent nausea. HOME CARE INSTRUCTIONS ? Take all medicine as directed by your caregiver. ? If you do not have an appetite, do not force yourself to eat. However, you must continue to drink fluids. ? If you have an appetite, eat a normal diet unless your caregiver tells you differently. ? Eat a variety of complex carbohydrates (rice, wheat, potatoes, bread), lean meats, yogurt, fruits, and vegetables. ? Avoid high-fat foods because they are more difficult to digest. ? Drink enough water and fluids to keep your urine clear or pale yellow. ? If you are dehydrated, ask your caregiver for specific rehydration instructions. Signs of dehydration may include: ? Severe thirst. ? Dry lips and mouth. ? Dizziness. ? Dark urine. ? Decreasing urine frequency and amount. ? Confusion. ? Rapid breathing or pulse. SEEK IMMEDIATE MEDICAL CARE IF: ? You have blood or brown flecks (like coffee grounds) in your vomit. ? You have black or bloody stools. ? You have a severe headache or stiff neck. ? You are confused. ? You have severe abdominal pain. ? You have chest pain or trouble breathing. ? You do not urinate at least once every 8 hours. ? You develop cold or clammy skin. ? You continue to vomit for longer than 24 to 48 hours. ? You have a fever. MAKE SURE YOU: ? Understand these instructions. ? Will watch your condition. ? Will get help right away if you are not doing well or get worse. Document Released: 08/24/2006 Document Revised: 11/15/2012 Document Reviewed: 01/21/2012 ExitCare? Patient Information ?2015 [employer]. This information is not intended to replace advice given to you by your health care provider. Make sure you discuss any questions you have with your health care provider. Colitis Colitis is inflammation of the colon. Colitis can be a short-term or long-standing (chronic) illness. Crohn's disease and ulcerative colitis are 2 types of colitis which are chronic. They usually require lifelong treatment. CAUSES There are many different causes of colitis, including: ? Viruses. ? Germs (bacteria). ? Medicine reactions. SYMPTOMS ? Diarrhea. ? Intestinal bleeding. ? Pain. ? Fever. ? Throwing up (vomiting). ? Tiredness (fatigue). ? Weight loss. ? Bowel blockage. DIAGNOSIS The diagnosis of colitis is based on examination and stool or blood tests. X-rays, CT scan, and colonoscopy may also be needed. TREATMENT Treatment may include: ? Fluids given through the vein (intravenously). ? Bowel rest (nothing to eat or drink for a period of time). ? Medicine for pain and diarrhea. ? Medicines (antibiotics) that kill germs. ? Cortisone medicines. ? Surgery. HOME CARE INSTRUCTIONS ? Get plenty of rest. ? Drink enough water and fluids to keep your urine clear or pale yellow. ? Eat a well-balanced diet. ? Call your caregiver for follow-up as recommended. SEEK IMMEDIATE MEDICAL CARE IF: ? You develop chills. ? You have an oral temperature above 102? F (38.9? C), not controlled by medicine. ? You have extreme weakness, fainting, or dehydration. ? You have repeated vomiting. ? You develop severe belly (abdominal) pain or are passing bloody or tarry stools. MAKE SURE YOU: ? Understand these instructions. ? Will watch your condition. ? Will get help right away if you are not doing well or get worse. Document Released: 10/01/2005 Document Revised: 11/15/2012 Document Reviewed: 12/27/2010 ExitCare? Patient Information ?2014 [employer]. This information is not intended to replace advice given to you by your health care provider. Make sure you discuss any questions you have with your health care provider. IMARI TRISTYN M , have received the following patient education materials/instructions and have verbalized understanding: Patient Education Materials: Nausea and Vomiting; Colitis Follow-up Instructions: With: Address: When: Moriah Rosas [address] [place] [address] Business (1) In 3 days 03/03/2020 With: Address: When: Armand Acostatayler [address] [place] [address], [facility] [place] [address] Business (1) In 3 days 03/03/2020 Patient Signature ____ Date Clinician/Nurse Signature Date 02/29/2020 13:52:[address] [facility] Hep Func Panelon 02-29-2020 Albumin [Mass/Vol] 1.3 g/dL Normal 1.1-2.[address] [facility] Comment on above: Performed By: #### 2 [id number], [id number], [id number], [id number], [id number], [id number], [id number] #### [facility] [address] [place] [address] Albumin [Mass/Vol] 4.2 g/dL Normal 3.3-5.[address] [facility] Comment on above: Performed By: #### 2 [id number], [id number], 5901314, 9754527, 2358319, [id number], [id number] #### [facility] [address] [place] [address] ALP [Catalytic activity/Vol] 58 Int._Unit/L Normal 21-[address] [facility] Comment on above: Performed By: #### 2 [id number], [id number], 6381856, [id number], 2206036, [id number], [id number] #### [facility] [address] [place] [address] ALT No additional P-5'-P [Catalytic activity/Vol] 20 Int._Unit/L Normal 6-[address] [facility] Comment on above: Performed By: #### 2 558436, 4490273, 1437046, 9315985, 5442266, [id number], [id number] #### [facility] [address] [place] [address] AST [Catalytic activity/Vol] 28 Int._Unit/L Normal 5-[address] [facility] Comment on above: Performed By: #### 2 074024, 9692311, 9088452, 8538139, 5729013, [id number], [id number] #### [facility] [address] [place] [address] Bilirubin [Mass/Vol] 1.2 mg/dL High 0.0-1.[address] [facility] Comment on above: Performed By: #### 2 621664, 4971699, 4325281, 6164040, 9079936, 20090166, [id number] #### [facility] [address] [place] [address] Bilirubin.direct [Mass/Vol] 1.0 mg/dL High 0.1-0.[address] [facility] Comment on above: Performed By: #### 2 746224, 5191179, 8373963, 0794885, 4111975, [id number], [id number] #### [facility] [address] [place] [address] Bilirubin.direct [Mass/Vol] 0.2 mg/dL Normal 0.1-0.[address] [facility] Comment on above: Performed By: #### 2 [id number], [id number], 1621812, 5798692, 3505075, [id number], [id number] #### [facility] [address] [place] [address] Globulin (S) [Mass/Vol] 3.3 g/dL Normal 1.4-4.[address] [facility] Comment on above: Performed By: #### 2 306317, 2367369, 9128720, 5493059, 0571226, [id number], [id number] #### [facility] [address] [place] [address] Protein [Mass/Vol] 7.5 g/dL Normal 6.0-7.[address] [facility] Comment on above: Performed By: #### 2 405902, 2943282, 0782397, 1802064, 7268738, 29137581, 58393634 #### [facility] [address] [place] [address] Lactic Acidon 02-29-2020 Lactate [Mass/Vol] 0.8 mmol/L Normal 0.5-2.[address] [facility] Comment on above: Performed By: #### 2 489458, 5129732, 9803699, 1665554, 8517282, 39190888, [id number] #### [facility] [address] [place] [address] Lipase Levelon 02-29-2020 Lipase [Catalytic activity/Vol] 29 unit/L Normal 13-[address] [facility] Comment on above: Performed By: #### 2 655595, 9812706, 3027319, 9791342, 1484991, 37319614, 61432020 #### [facility] [address] [place] [address] UA With Cult Reflexon 2019 Bacteria LM Ql (Urine sed) TRACE Normal Trace [facility] Comment on above: Performed By: #### 1 [id number], 6640186 #### [facility] [address] [place] [address] Bilirubin Ql (U) 1+ Abnormal Negative [facility] Comment on above: Performed By: #### 1 2406728, 7179970 #### [facility] [address] [place] [address] Clarity (U) SL CLOUDY Abnormal Clear [facility] Comment on above: Performed By: #### 1 3566186, 1764915 #### [facility] [address] [place] [address] Color (U) YELLOW Normal Yellow [facility] Comment on above: Performed By: #### 1 3283212, 3060922 #### [facility] [address] [place] [address] Epithelial cells.squamous LM.HPF (Urine sed) [#/Area] /[HPF] Normal 0-[address] [facility] Comment on above: Performed By: #### 1 3340607, 4402844 #### [facility] [address] [place] [address] Glucose Test strip (U) [Mass/Vol] Negative Normal Negative [facility] Comment on above: Performed By: #### 1 0931474, 8246048 #### [facility] [address] [place] [address] Hemoglobin Ql (U) 1+ Abnormal Negative [facility] Comment on above: Performed By: #### 1 9038465, 2888665 #### [facility] [address] [place] [address] Ketones (U) [Mass/Vol] 3+ Abnormal Negative [facility] Comment on above: Performed By: #### 1 3389570, 1058957 #### [facility] [address] [place] [address] [place].plasma/Lith ium.RBC (Bld) [Mass ratio] 0-3 Normal 0-[address] [facility] Comment on above: Performed By: #### 1 2870511, 9845670 #### [facility] [address] [place] [address] Mucus Ql (Urine sed) 1+ Normal [facility] Comment on above: Performed By: #### 1 8209546, 0010957 #### [facility] [address] [place] [address] Nitrite Ql (U) Negative Normal Negative [facility] Comment on above: Performed By: #### 1 0048118, 1724670 #### [facility] [address] [place] [address] pH (U) 5.5 [pH] 5.0-9.[address] [facility] Comment on above: Performed By: #### 1 7230458, 6364795 #### [facility] [address] [place] [address] Protein (U) [Mass/Vol] Negative Normal Negative [facility] Comment on above: Performed By: #### 1 0178587, 9959115 #### [facility] [address] [place] [address] Specific gravity (U) [Rel density] >=1.030 1.005-1.[address] [facility] Comment on above: Performed By: #### 1 3465823, 0119950 #### [facility] [address] [place] [address] UA Spec Desc Clean Catch Normal [facility] Comment on above: Performed By: #### 1 0369594, 7320932 #### [facility] [address] [place] [address] Urobilinogen Qn (U) 0.2 {Jc'U}/dL Normal 0.0-1.[address] [facility] Comment on above: Performed By: #### 1 2322872, 6446426 #### [facility] [address] [place] [address] WBC Auto Ql (U) TRACE Abnormal Negative [facility] Comment on above: Performed By: #### 1 5438834, 9613329 #### [facility] [address] [place] [address] WBC LM.HPF (Urine sed) [#/Area] 16-25 Abnormal 0-[address] [facility] Comment on above: Performed By: #### 1 5847210, 1271910 #### [facility] [address] [place] [address] eGFRon 02-29-2020 GFR/1.73 sq M predicted among blacks MDRD (S/P/Bld) [Vol rate/Area] mL/min/{1.73_m2} Normal >=[address] [facility] Comment on above: Order Comment: Order added by Discern Expert. Result Comment: eGFR is race adjusted. AA=. Performed By: #### 2 523713, 6688480, 7890388, 1855666, 2575750, 37963323, 38434510 #### [facility] [address] [place] [address] GFR/1.73 sq M predicted among non-blacks MDRD (S/P/Bld) [Vol rate/Area] mL/min/{1.73_m2} Normal >=[address] [facility] Comment on above: Order Comment: Order added by Discern Expert. Result Comment: Floor Clerk nicki kidney disease could be indicated at eGFR's of less than 60 mL/min/1.73m2. Kidney failure is indicated at less than 15 mL/min/1.73m2. Performed By: #### 2 913026, 1537226, 0712874, 0948665, 3674516, 15999325, 19544565 #### [facility] [address] [place] [address] Provider Note - EDon 019 Protein mass conc TIME SEEN: Time [id number] 15:34 CHIEF COMPLAINT/REASON FOR VISIT: Chief ComplaintLeft eye pain REASON FOR VISITLeft Eye Pain(1) Historianpatient HISTORY OF PRESENT ILLNESS - ADDITIONAL: [id number] female presents to the Emergency Department today complaining of pain in her left lateral upper eyelid. Denies any changes in vision or any other associated symptoms. Does not wear glasses or contact lenses. ALLERGIES: Allergies: No Known Allergies: Active OUTPATIENT MEDICATION, REVIEW/ADD MEDICATIONS: * Outpatient Medication Status not yet specified PAST MEDICAL HISTORY: Past Medical History: noncontributory (1) SUBSTANCE USE: Smoking Statusnever smoker(1) Alcohol Use Statuscurrent alcohol (1) Alcohol Frequencymonthly or less (1) Street Drug/Inhalant/Medication Use Statusstreet drug/inhalants/medication never used (1) Exposure to Second Hand Smokeinfrequent (1) HISTORY ATTESTATION: AttestationI have reviewed and confirmed nurse's/medic's notes for patient's medications, allergies, medical history, and surgical history VITAL SIGNS: 2. Vital Signs: Date/TimeTemp (degrees F) (degrees F)Temp (degrees C) (degrees C)Temperature Site SiteHeart Rate (beats/min) beats/minBP Systolic (mm Hg) Systolic 31-Dec-2018 15:[id number] 8 BP Diastolic (mm Hg) Diastolic (mm Hg)Respiration (breaths/min) Respiration (breaths/min)SpO2 (%) SpO2 (%)Height (ft) Height (ft)Height (remainder in inches) Height (in) [id number] Height (cm) Height (cm)Weight MethodBSA (m2)BMI (kg/m2) BMI (kg/m2)Weight (lbs) Weight (lbs) 147.9gturrk2.4323.1111 Weight (kg) Weight (kg)Presence of PainLocation LocationPain Rating 50.3complains of pain/discomforteye5/10 PHYSICAL EXAMINATION: General Appearance CommentsWell appearing patient with no acute distress. Eyes CommentsBilateral conjunctiva without injection, discharge, or drainage. PERRL with consensual pupil response bilaterally. EOM's are intact without any signs of entrapment. No foreign body noted in the lower lid or upper lid upon eversion. Fluorescein stain was activated in the conjunctiva. Upon further evaluation with a Wood's lamp, there were no foreign bodies, areas of uptake, or corneal abrasions. There is a small reddened raised area noted to the left upper lateral eyelid. Respiratory CommentsRespirations are spontaneous and nonlabored. Lung sounds are clear in all cota anteriorly and posteriorly. Cardiovascular CommentsRRR without murmur, click, or rub. PROGRESS NOTE: ED Course: patient was seen and evaluated by myself. There is what appears to be a possible early stye to the left eye. Instructed to apply warm packs to area. Follow up with her doctor in 3 days. Given Bacitracin ophthalmic ointment to apply. Return if worse in any way. Discharged in stable condition with computer-generated instructions. Diagnostic Impression: 1. Acute left eye pain, possible early stye. 2. Prescription therapy DIAGNOSES/PROBLEM LIST: Problem [id number] StyED [id number] DISCHARGE DISPOSITION: Disposition: discharged Discharge Type: home CONDITION ON DISCHARGE: Condition on Dispositionstable MEDICATION RECONCILIATION AND DISCHARGE MEDS: * Outpatient Medication Status not yet specified CO-SIGN/ATTESTATION: Attestation: Supervising physician on site, available for consultation, non-participatory in the evaluation of the care of this patient. Electronic Signatures: Sarina Velasquez) (Signed 01-Jan-2019 01:34) Co-Signer: Time Seen/ED Notes, Chief Complaint/Reason for Visit via Triage Note, Patient History, History Attestation, Physical Exam, Progress Note, ED Disposition (REQUIRED), Attestation Diego Moser ([facility]) (Signed 31-Dec-2018 17:47) Entered: Time Seen/ED Notes, Chief Complaint/Reason for Visit via Triage Note, Patient History, History Attestation, Vital Signs, Physical Exam, Progress Note, ED Disposition (REQUIRED), Attestation Authored: Time Seen/ED Notes, Chief Complaint/Reason for Visit via Triage Note, Patient History, History Attestation, Physical Exam, Progress Note, ED Disposition (REQUIRED), Attestation Last Updated: 01-Jan-2019 01:34 by Sarina Velasquez) References: 1. Data Referenced From Triage Note, Emergency 12/31/2018 3:24 PM Normal [facility] Gram Stainon 12-06-2018 Microscopic observation Gram stain Nom (Unsp spec) SOURCE: Vag (No White Blood Cells No clue cells Moderate Yeast Smear not consistent with bacterial vaginosis.) Normal [facility] Auto Diffon 11-25-2018 Basophils/100 WBC (Bld) 0.2 % Normal 0.0-2.4 [facility] Basophils/100 WBC (Bld) 0.0 x10E9/L Normal 0.0-0.2 [facility] Eosinophils #/vol (Bld) 0.0 10*3/uL Normal 0.0-0.5 [facility] Eosinophils/100 WBC (Bld) 0.0 % Low 0.7-6.5 [facility] Lymphocytes #/vol (Bld) 1.3 10*3/uL Normal 1.1-3.5 [facility] Lymphocytes/100 WBC (Bld) 9.9 % Low 17.0-44.0 [facility] Monocytes #/vol (Bld) 1.2 10*3/uL High 0.3-1.0 [facility] Monocytes/100 WBC (Bld) 8.8 % Normal 5.3-12.5 [facility] Neutrophils #/vol (Bld) 11.0 10*3/uL High 1.8-7.5 [facility] Neutrophils/100 WBC (Bld) 81.1 % High 41.0-73.8 [facility] CMPon 11-25-2018 Albumin mass conc 4.0 g/dL Normal 3.5-5.0 [facility] Alk Phos 50 IU/L Normal 32-91 [facility] ALT enzyme act/vol 12 U/L Low 14-63 [facility] Anion gap molar conc 14.0 mmol/L Normal 5.0-19.0 [facility] AST enzyme act/vol 21 U/L Normal 15-41 [facility] Bilirubin mass conc 0.3 mg/dL Normal 0.3-1.2 [facility] Bun/CretRatio 8.5 Normal [facility] Calcium mass conc 8.8 mg/dL Normal 8.1-10.1 [facility] Chloride molar conc 100 mmol/L Normal 98-107 [facility] CO2 molar conc 22 mmol/L Normal 22-32 [facility] Creatinine mass conc 0.71 mg/dL Normal 0.60-1.30 [facility] Glucose mass conc 84 mg/dL Normal 70-100 [facility] Osmolality-Calc 269 mOsm/kg Normal [facility] Potassium molar conc 3.7 mmol/L Normal 3.4-5.1 [facility] Protein mass conc 8.2 g/dL High 6.5-8.1 [facility] Sodium molar conc 136 mmol/L Normal 136-144 [facility] Urea nitrogen mass conc 6 mg/dL Low 8-26 [facility] EBV Scron 11-25-2018 EB Capsid IgM <36.0 Normal 0.0-35.9 [facility] Comment on above: Result Comment: Negative <36.0 Equivocal 36.0 - 43.9 Positive >43.9 EB Early Ab IgG <9.0 Normal 0.0-8.9 [facility] Comment on above: Result Comment: Negative < 9.0 Equivocal 9.0 - 10.9 Positive >10.9 EB Interp: COMMENT Normal [facility] Comment on above: Result Comment: EBV Interpretation Chart . Interpretation EBV-IgM EA(D)-IgG VCA-IgG EBNA-IgG . EBV Seronegative - - - - Early Phase + - - - Acute Primary + +or- + - Infection Convalescence/Past - +or- + + Infection Reactivated +or- + + + Infection + Antibody Present - Antibody Absent Lab[address] [id number] PhD Debi Contreras PhD EBV Capsid IgG 297.0 unit/mL High 0.0-17.9 [facility] Comment on above: Result Comment: Negative <18.0 Equivocal 18.0 - 21.9 Positive >21.9 EBV Nuc Ag IgG >600.0 High 0.0-17.9 [facility] Comment on above: Result Comment: Negative <18.0 Equivocal 18.0 - 21.9 Positive >21.9 Glycon 11-25-2018 eAG 105.4 mg/dL Normal [facility] Hemoglobin A1c/Hemoglobin.tota l mass fraction (Bld) 5.3 % Normal 4.0-6.0 [facility] Vit D 25OHon 11-25-2018 Vit D 25-OH 18 ng/mL Normal [facility] Comment on above: Result Comment: Deficient: Less than 20 ng/mL Insufficient: 20 to less than 30 ng/mL Sufficient: 30 to 100 ng/mL Upper Safety Limit: Greater than 100 ng/mL zCBCDon 11-25-2018 Erythrocyte distribution width Ratio (RBC) 14.8 % Normal 11.4-16.0 [facility] Hematocrit Volume Fraction (Bld) 42.4 % Normal 34.7-44.9 [facility] Hemoglobin mass conc (Bld) 13.8 g/dL Normal 11.3-15.6 [facility] MCH Entitic mass (RBC) 28.1 pg Normal 26.5-33.0 [facility] MCHC mass conc (RBC) 32.5 g/dL Low 32.6-36.0 [facility] MCV Entitic volume (RBC) 86.4 fL Normal 80.0-100.0 [facility] Mean Plt Vol 9.4 fL Normal 7.2-10.3 [facility] Platelets #/vol (Bld) 230 10*3/uL Normal 144-400 [facility] RBC #/vol (Bld) 4.90 x10E12/L Normal 3.78-5.45 [facility] WBC #/vol (Bld) 13.7 10*3/uL High 3.5-11.5 [facility] C Urineon 09-30-2018 C Urine SOURCE: Urine (No gr owth Testing performed at [facility] Department of Laboratory Medicine [address] [place] [address]) Normal [facility] C Urineon 06-23-2018 C Urine SOURCE: Urine (>100, 000 cfu/ml Escherichia coli See Scanned Report. Testing performed at [facility] Department of Laboratory Medicine [address] [place] [address]) ORGANISM : Escherichia coli ORGANISM : Escherichia coli Normal [facility] Chlam Amp RNAon 06-23-2018 Chlam Amp RNA Negative Normal Negative [facility] Comment on above: Result Comment: Hologic? Aptima Combo 2 Assay is an in vitro nucleic acid amplification test for the detection of ribosomal RNA from Chlamydia trachomatis (CT) and Neisseria gonorrhoeae (GC) to aid in the diagnosis of chlamydial and/or gonococcal urogenital disease. This assay is FDA-approved for testing on female endocervical swabs, vaginal swabs, ThinPrep liquid-based pap samples, male urine samples and urethral swabs. Performance characteristics for this assay on specific ozs-RHI-dqxuhvaw sample types (female urine) have been validated by [facility]. Performance has not been evaluated for patients less than 14 years of age. Results should be interpreted in conjunction with other clinical information. GC AMP RNAon 06-23-2018 GC Amp RNA Negative Normal Negative [facility] Encounters Encounter Date Encounter Type Care Provider Facility Start: 04-13-2022 End: 04-13-[address] ARMAND TUBBS Facility:[facility] Start: 12-31-2018 Patient encounter procedure Facility:[id number] Start: 12-06-2018 Patient encounter procedure Facility:[id number] Start: 11-25-2018 Patient encounter procedure Facility:[id number] Start: 09-30-2018 Patient encounter procedure Facility:[id number] Start: 06-23-2018 Patient encounter procedure Facility:[id number] Payers Date Payer Category Payer Unknown [id number] 2.16. [id number] 1997 Unknown [id number] 2.16. [id number] 1997 Unknown [id number] 2.16. [id number] 1997 Unknown [id number] 2.16. [id number] 1997 Unknown [id number] 2.16. [id number] 1997 Unknown [id number] 2.16.84 [id number] 1957 Self-pay [id number] Unknown [id number] Unknown Unknown [id number] Summary Purpose Family History No Family History Records FoundNo Family History Records FoundNo Family History Records FoundNo Family History Records Found Advance Directives No Advanced Directives Records FoundNo Advanced Directives Records FoundNo Advanced Directives Records FoundNo Advanced Directives Records Found Additional Source Comments INFORMATION SOURCE (unrecogn ized section and content) DATE CREATED AUTHOR 01/05/2019 [facility] DATE CREATED AUTHOR AUTHOR'S ORGANIZ ATION 02/26/2019 [facility] DATE CREATED AUTHOR AUTHOR'S ORGANIZ ATION 05/23/2020 [facility] DATE CREATED AUTHOR AUTHOR'S ORGANIZ ATION 04/14/2022 [facility] FOR RECORDS PERTAINING TO PATIENTS WHO ARE OR HAVE BEEN ENROLLED IN A CHEMICAL DEPENDENCY/SUBSTANCEABUSE PROGRAM, SOME INFORMATION MAY BE OMITTED. This clinical summary was aggregated from multiple sources. Caution should be exercised in using it in the provision of clinical care. This summary normalizes information from multiple sources, and as a consequence, information in this document may materially change the coding, format and clinical context of patient data. In addition, data may be omitted in some cases. CLINICAL DECISIONS SHOULD BE BASED ON THE PRIMARY CLINICAL RECORDS. [facility] [employer] [facility]. provides no warranty or guarantee of the accuracy or completeness of information in this document.
[2024-06-18] MEDS: LIDOCAINE HCL 1% PF 50 MG/5 ML VIAL INJ (19:00)
--- NOTE | 2024-06-18 19:04 | ED.GENADUL1 ---
HPI HPI - General Adult General Chief complaint: Skin/Abscess/Foreign Body Stated complaint: Laceration Time Seen by Provider: 06/18/24 18:46 History of Present Illness HPI narrative: The patient is a 28-year-old female coming to the ER with a laceration to her left hand, patient was making some potato soup when she was cutting some plastic packaging and the knife got into her left hand, according to her it was a paring knife The patient last tetanus booster was a year ago No other injury Related Data Home Medications ?Medication ?Instructions ?Recorded ?Confirmed fluoxetine 20 mg capsule mg 07/07/23 Allergies Allergy/AdvReac Type Severity Reaction Status Date / Time No Known Drug Allergies Allergy Verified 07/07/23 05:40 Opioid HPI Opioid Management Most Recent Opioid Data: No Data to Display Review of Systems ROS Status of ROS 10 or more systems reviewed and unremarkable except as noted in history and below PFSH PFSH Social History Smoking status: Never smoker Little interest or pleasure in doing things: not at all Feeling down, depressed, or hopeless: not at all Exam Narrative Exam Narrative: Nurses notes and vital signs reviewed and patient is not hypoxic. Examination of the patient left hand showed that she have a laceration just been between the thumb and the index finger the laceration is 1 cm linear and it at the web between the 2 fingers, the patient have no vascular injury detected in her fingers with good capillary refill. Full range of movement preserved in the thumb and index finger as well as the rest of the hand General: Well-appearing and in no apparent distress. Skin: Warm, dry, no pallor noted. No rash. Head: Normocephalic, atraumatic. Neck: Supple, non-tender. Eye: Pupils are equal, round and EOMI. No scleral icterus. Ears, Nose, Mouth, and Throat: TM are clear, no nasal mucosal hypertrophy. Oral mucosa is moist, no posterior oropharynx erythema, uvula is mid-line Cardiovascular: Regular Rate and Rhythm without murmur, gallop or rub. Respiratory: No accessory muscle use or respiratory distress. Lungs are clear to auscultation, no wheezing, rales or rhonchi Chest Wall: no tenderness Back: No midline thoracic or lumbar vertebral tenderness. No CVA tenderness GI: Abdomen is soft, non-distended. Normal bowel sounds. No masses appreciated. No tenderness to palpation. No rebound, guarding, or rigidity noted. Neurological: A&O x4. No cranial nerve dysfunction observed. No truncal ataxia. Moves all extremities. Sensation intact. Psychiatric: Cooperative and interactive. Normal mood and affect. Constitutional Vital Signs, click to edit/add: Last Vital Signs Temp 97.8 F 06/18/24 18:08 Pulse 79 06/18/24 18:08 Resp 18 06/18/24 18:08 BP 107/63 06/18/24 18:08 Pulse Ox 98 06/18/24 18:08 O2 Del Method Room Air 06/18/24 18:08 Course Vital Signs Vital signs: Vital Signs Temperature 97.8 F 06/18/24 18:08 Pulse Rate 79 06/18/24 18:08 Respiratory Rate 18 06/18/24 18:08 Blood Pressure 107/63 06/18/24 18:08 Pulse Oximetry 98 06/18/24 18:08 Oxygen Delivery Method Room Air 06/18/24 18:08 Temperature 97.8 F 06/18/24 18:08 Pulse Rate 79 06/18/24 18:08 Respiratory Rate 18 06/18/24 18:08 Blood Pressure 107/63 06/18/24 18:08 Pulse Oximetry 98 06/18/24 18:08 Oxygen Delivery Method Room Air 06/18/24 18:08 Medical Decision Making [facility] Narrative Medical decision making narrative: After cleaning the wound and applying 1% lidocaine to infiltrate the area almost 5 cc of 1% lidocaine infiltrated the area The patient had three 4-0 nylon stitches applied that are interrupted The patient then again full range of movement still preserved no vascular injury detected and the bleeding was controlled Patient was instructed about hand hygiene and monitoring symptoms for any infection Patient also to make sure that the stitches will be taken out 5 to 7 days from now In case of any redness or increased pain or any restarted bleeding the patient to come back to the ER The patient is to follow up with primary care physician in next 2-3 days or to return to the emergency department should any of the signs or symptoms worsen or new symptoms develop. The patient agrees with the following Diagnosis and Treatment plan and the patient will be discharged home. Discharge Plan Discharge Chief Complaint: Skin/Abscess/Foreign Body Clinical Impression: Laceration Patient Disposition: Home, Self-Care Time of Disposition Decision: 19:04 Condition: Good Prescriptions / Home Meds: No Action fluoxetine 20 mg capsule Print Language: Sinhala Instructions: Care For Your Stitches (ED), Stitches Removal (ED) Referrals: Michael Tubbs MD [Primary Care Provider] - 1 week Discharge Date/Time: 06/18/24 19:26
== END 2024-06-18 19:26 | disposition home or self-care (01) ==
PROVIDERS: Emergency Provider Emergency Medicine; PCP Family Medicine
DX: S61.412A Laceration without foreign body of left hand, initial encounter (principal); W26.0XXA Contact with knife, initial encounter
CPT/HCPCS: 12001; 99284